=== PATIENT | male | born 1950 | race Caucasian/White ===

== ENCOUNTER 2018-06-21 13:25 | Emergency (ER) | payer OTHER ==
[2018-06-21] MEDS ORDERED: ONDANSETRON DISINTEGRATING 4 MG TAB PO ONE (13:45)
[2018-06-21] MEDS ORDERED: NS 1,000 ML IV ONE ×2 (14:16→14:23)
[2018-06-21] MEDS ORDERED: PROMETHAZINE HCL 25 MG/ML INJ IVP ONE (14:23)
--- NOTE | 2018-06-21 14:36 | EDPHY ---
H & P Stated Complaint: Pt. states vomiting and diarrhea x24hrs,denies fever/chills or pain Source: Patient Exam Limitations: No limitations - Personal History Current Tetanus Diphtheria and Acellular Pertussis (TDAP): Yes Tetanus Vaccine Date: 2011 - Medical/Surgical History Hx Asthma: No Hx Chronic Respiratory Disease: No Hx Diabetes: No Hx Cardiac Disease: No Hx Renal Disease: No Hx Cirrhosis: No Hx Alcoholism: No Hx HIV/AIDS: No Hx Splenectomy or Spleen Trauma: No Other PMH: MEd hx-arthritis,anxiety,bph. Surg-knee,hernia - Family History Significant Family History: No pertinent family hx - Social History Smoking Status: Never smoked Alcohol Use: None Time Seen by Provider: 06/21/18 14:19 HPI/ROS: CHIEF COMPLAINT: Nausea, vomiting and diarrhea HISTORY OF PRESENT ILLNESS: The patient is a 68-year-old man who comes to the emergency depart with his complaining nausea vomiting diarrhea for the last 24 hr. His diarrhea has been watery. He is concerned about dehydration. He has vomited 3-4 times. It is been nonbloody. He states that he does continue to urinate but it is dark yellow. His mouth feels dry. He denies abdominal pain or tenderness. No fever. No recent travel. No drinking unfiltered water. No sick contacts. Severity: Moderate Modifying factors: None REVIEW OF SYSTEMS: Constitutional: denies: chills, fever, recent illness, recent injury EENTM: denies: blurred vision, double vision, nose congestion Respiratory: denies: cough, shortness of breath Cardiac: denies: chest pain, irregular heart rate, lightheadedness, palpitations Gastrointestinal/Abdominal: See HPI Genitourinary: denies: dysuria, frequency, hematuria, pain Musculoskeletal: denies: joint pain, muscle pain Skin: denies: lesions, rash, jaundice, bruising Neurological: denies: headache, numbness, paresthesia, tingling, dizziness, weakness Hematologic/Lymphatic: denies: blood clots, easy bleeding, easy bruising Immunologic/allergic: denies: HIV/AIDS, transplant 10 systems reviewed and negative except as noted EXAM: GENERAL: Well-appearing, well-nourished and in no acute distress. HEAD: Atraumatic, normocephalic. EYES: Pupils equal round and reactive to light, extraocular movements intact, sclera anicteric, conjunctiva are normal. ENT: TMs normal, nares patent, oropharynx clear without exudates. Moist mucous membranes. NECK: Normal range of motion, supple without lymphadenopathy or JVD. LUNGS: Breath sounds clear to auscultation bilaterally and equal. No wheezes rales or rhonchi. HEART: Regular rate and rhythm without murmurs, rubs or gallops. ABDOMEN: Soft, nontender, normoactive bowel sounds. No guarding, no rebound. No masses appreciated. BACK: No CVA tenderness, no spinal tenderness, step-offs or deformities EXTREMITIES: Normal range of motion, no pitting or edema. No clubbing or cyanosis. NEUROLOGICAL: Cranial nerves II through XII grossly intact. Normal speech, normal gait. 5/5 strength, normal movement in all extremities, normal sensation , normal reflexes PSYCH: Normal mood, normal affect. SKIN: Warm, dry, normal turgor, no visible rashes or lesions. (Marvin Velez) Constitutional: Initial Vital Signs Temperature (C) 36.7 C 06/21/18 13:38 Heart Rate 79 06/21/18 13:38 Respiratory Rate 16 06/21/18 13:38 Blood Pressure 101/72 06/21/18 13:38 O2 Sat (%) 94 06/21/18 13:38 O2 Delivery Mode Room Air Allergies/Adverse Reactions: No Known Allergies Allergy (Verified 06/21/18 13:37) Home Medications: Medication Instructions Recorded Cialis 06/21/18 Meloxicam 06/21/18 Promethazine HCl [Phenergan 25mg 25 mg PO TID PRN #10 tab 06/21/18 (RX)] Zyrtec 06/21/18 buPROPion 06/21/18 Medical Decision Making ED Course/Re-evaluation: Patient's abdominal exam is benign. He is here primarily requesting hydration. Will give 2 L of fluid and check his electrolytes. He received Zofran ODT at triage and states that it is working somewhat but he still feels nauseous. Will add Phenergan as well. 3:00 p.m. Care transferred to Dr. Clair Suarez. 3:10 p.m. on re-evaluation the patient's abdominal exam remains benign. He is asking for prescription of Phenergan. Will prepare his paperwork in expectation of discharge. He is receiving a 2nd L of fluid. (Marvin Velez) Other Provider: I assumed care of this patient from Dr. Velez at 3:00 p.m.. At that time we were awaiting results of the patient's chemistries. Patient's chemistries revealed significant pre renal azotemia with a creatinine of 1.8 and a BUN of 45. Patient's old records demonstrates a creatinine of 1.1 in January 2018. Discussed this with the patient and his . Patient has not had further diarrhea since 1:30 a.m. last night. We will continue to provide IV hydration and observe patient for 4 hr. Provided he has no further vomiting or diarrhea, we will recheck a creatinine. If it is trending downward patient will be discharged. Repeat chemistries performed at 6:00 p.m. demonstrated creatinine of 1.2. Patient has been tolerating p.o. fluids with no further vomiting and no diarrhea here. He will be discharged to continue to hydrate at home. (Clair Alexander) - Data Points Medications Given: Discontinued Medications Acetaminophen (Tylenol) 1,000 mg PO EDNOW ONE Stop: 06/21/18 15:34 Last Admin: 06/21/18 15:36 Dose: 1,000 mg Sodium Chloride (Ns) 1,000 mls @ 0 mls/hr IV ONCE ONE PRN Reason: Wide Open Stop: 06/21/18 14:17 Last Admin: 06/21/18 14:19 Dose: 1,000 mls Sodium Chloride (Ns) 1,000 mls @ 0 mls/hr IV EDNOW ONE; Wide Open PRN Reason: Protocol Stop: 06/21/18 14:24 Last Admin: 06/21/18 15:12 Dose: 1,000 mls Ondansetron HCl (Zofran Odt) 4 mg PO EDNOW ONE Stop: 06/21/18 13:46 Last Admin: 06/21/18 13:47 Dose: 4 mg Promethazine HCl (Phenergan) 12.5 mg IVP EDNOW ONE Stop: 06/21/18 14:24 Last Admin: 06/21/18 14:40 Dose: 12.5 mg Promethazine HCl (Phenergan 25 Mg Prepack #4) 1 btl TAKEHOME EDNOW ONE Stop: 06/21/18 18:17 Last Admin: 06/21/18 18:24 Dose: 1 btl Point of Care Test Results: CBC CBC Collection Date 06/21/18 CBC Collection Time 13:55 WBC 9.95 RBC 5.96 HGB 17.5 HCT 51.7 PLT 264 Neut # 8.64 Neut 86.9 LYMPH # 0.43 LYMPH 4.3 MCV 86.7 Chemistry 06/21/18 06/21/18 17:50 14:57 POC Sodium 142 mEq/L mEq/L 139 mEq/L mEq/L (135-145) (135-145) POC Potassium 4.2 mEq/L mEq/L 3.5 mEq/L mEq/L (3.3-5.0) (3.3-5.0) POC Chloride 107.0 mEq/L mEq/L 104.0 mEq/L mEq/L (97-110) (97-110) POC Total CO2 24 mEq/L mEq/L 21 mEq/L L mEq/L (22-31) (22-31) POC BUN 39 mg/dL H mg/dL 45 mg/dL H mg/dL (7-23) (7-23) POC Creatinine 1.2 mg/dL mg/dL 1.8 mg/dL H mg/dL (0.7-1.3) (0.7-1.3) POC Glucose 110 mg/dL H mg/dL 123 mg/dL H mg/dL (70-100) (70-100) POC Calcium 8.2 mg/dL L mg/dL 9.5 mg/dL mg/dL (8.5-10.4) (8.5-10.4) POC Total Bilirubin 1.0 mg/dL mg/dL (0.1-1.4) POC AST 29 IU/L IU/L (17-59) POC ALT 26 IU/L IU/L (21-72) POC Alk Phosphatase 71 IU/L IU/L (38-126) POC Total Protein 8.1 g/dL g/dL (6.3-8.2) POC Albumin 4.4 g/dL g/dL (3.5-5.0) Departure - Departure Disposition: Home, Routine, Self-Care Clinical Impression: Vomiting and diarrhea Condition: Fair Instructions: Promethazine (By injection), Gastroenteritis (ED) Additional Instructions: Mainstay of therapy is to hydrate with small frequent sips of fluid. If you developed recurrent nausea and vomiting, please use the Phenergan. If you would develop recurrent diarrhea, you may take Imodium. For your vomiting and diarrhea, I suggested you start with a bland diet and advance as tolerated. This means start with clear liquids such as water, Gatorade, juice, flat non- caffeinated soda. If you tolerate clear liquids, then you may add bland foods such as bananas, rice, or toast. If you do not have any worsening of your symptoms, you may begin to resume a regular diet. Referrals: Maurisio Khan MD [Medical Doctor] - 2-3 days, if not improved NONE *PRIMARY CARE P,. [Primary Care Provider] - 2-3 days, if not improved Prescriptions: Promethazine HCl [Phenergan 25mg (RX)] 25 mg PO TID PRN #10 tab PRN Reason: Nausea & Vomiting
[2018-06-21] MEDS ORDERED: ACETAMINOPHEN 500 MG TAB PO ONE (15:33)
[2018-06-21] MEDS ORDERED: PROMETHAZINE 25 MG PREPACK #4 BTL TAKEHOME ONE (18:16)
[2018-06-21 19:16] VITALS: BP 100/58
== END 2018-06-21 18:27 | disposition home or self-care (01) ==
LOC: CED 13:25
DX: R11.2 Nausea with vomiting, unspecified (principal); R19.7 Diarrhea, unspecified
CPT/HCPCS: 96361; 96374; 99284; J2550; 80048-ER; 80053-ER